=== PATIENT | male | born 1940 | race Caucasian/White ===

== ENCOUNTER 2021-03-28 01:36 | Inpatient (IN) | payer BC ==
[~2021-03-28] VITALS: Ht 180.3 cm; Wt 131.5 kg
[2021-03-28 01:44] VITALS: BP 147/80
[2021-03-28] MEDS ORDERED: ASA81BEC PO (02:28)
[2021-03-28] MEDS ORDERED: LIPITOR40 MG PO (02:28)
[2021-03-28] MEDS ORDERED: ALPRAZOLAM XR3 MG PO (02:30)
[2021-03-28] MEDS ORDERED: ALLOPURINOL 10100 M3 PO (02:30)
[2021-03-28] MEDS ORDERED: PLAVIX 75 MG TA75 MG PO (02:31)
[2021-03-28] MEDS ORDERED: VOLTAREN ARTHRI20 GM TOP (02:32)
[2021-03-28] MEDS ORDERED: FAMOTIDINE 20 M20 MG PO (02:33)
[2021-03-28] MEDS ORDERED: NEURONTIN 300M300 M2 PO (02:33)
[2021-03-28 02:34] LABS: ABSOLUTE BASOPHILS 0.1 thou/uL (0.0-0.2); ABSOLUTE EOSINOPHILS 0.1 thou/uL (0.0-0.7); ABSOLUTE MONOCYTES 1.4 thou/uL (0.0-1.2); ABSOLUTE NEUTROPHILS 6.4 thou/uL (1.6-8.1); BASOPHILS 0.7 %; EOSINOPHILS 1.1 %; HEMOGLOBIN 12.7 gm/dL (14.0-18.0); LYMPHOCYTES 20.6 %; MCH 31.4 pg (26.0-34.0); MCHC 33.6 g/dL (28.0-37.0); MCV 93.6 fL (80.0-100.0); MONOCYTES 13.6 %; MPV 8.1 fl. (7.2-11.1); NUCLEATED RBCS 0 /100WBC; PLATELET COUNT* 240 thou/uL (150-400); RBC 4.06 mil/uL (4.50-6.00); WBC 9.9 thou/uL (4.0-11.0)
[2021-03-28] MEDS ORDERED: LISINOPRIL20 MG PO (02:34)
[2021-03-28] MEDS ORDERED: TOPROL XL100 MG PO (02:34)
[2021-03-28] MEDS ORDERED: VICTOZA0.6 MG/0.1 SUBQ (02:35)
[2021-03-28] MEDS ORDERED: PROAIR HFA8.5 GM INH (02:35)
[2021-03-28] MEDS ORDERED: FLOMAX0.4 MG PO (02:36)
[2021-03-28 02:47] LABS: APTT 32.2 Seconds (25.0-31.3); CALCIUM 9.3 mg/dL (8.5-10.1); CREATININE 1.5 mg/dL (0.6-1.3); INR 1.1; POTASSIUM 3.8 mmol/L (3.5-5.1)
[2021-03-28 02:52] LABS: ALBUMIN 2.7 g/dL (3.4-5.0); TOTAL BILIRUBIN 1.1 mg/dL (<0.1-1.0); TOTAL PROTEIN 7.3 g/dL (6.4-8.2)
[2021-03-28 04:42] LABS: URINE BILIRUBIN NEGATIVE (Negative); URINE BLOOD NEGATIVE (Negative); URINE CLARITY CLEAR; URINE COLOR YELLOW; URINE GLUCOSE-RANDOM NEGATIVE (Negative); URINE KETONES NEGATIVE (Negative); URINE LEUKOCYTES-REFLEX 1+ (Negative); URINE NITRITE-REFLEX NEGATIVE (Negative); URINE PROTEIN NEGATIVE (Negative); URINE SPECIFIC GRAVITY 1.015 (1.005-1.030); URINE UROBILINOGEN 0.2 E.U./dl (0.2-1.0)
[2021-03-28 05:15] VITALS: BP 147/80
[2021-03-28 05:45] LABS: BACTERIA-REFLEX 1-9 Few /HPF (None Seen); CASTS None Seen /LPF (None Seen); CRYSTALS None Seen /LPF (None Seen); SQUAMOUS 0-3 Few /LPF (0-3); URINE RBC None Seen /HPF (0-2); URINE WBC-REFLEX 0-5 Rare /HPF (0-5)
[2021-03-28 08:00] VITALS: BP 123/67
--- NOTE | 2021-03-28 09:08 | EKG ---
[place] [address] ELECTROCARDIOGRAM REPORT Name: ABRAN KYLE Room: [address] ADM IN M.R.#: [id number] Admission: 03/28/21 Attend Phys: Ronny Patel, Discharge: Date of : 40 Date of Service: 03/28/21 0143 Report #: [id number] THIS REPORT FOR: //name// [facility] ED Test Date: 2021-03-28 Test Time: 01:43:08 Pat Name: ABRAN KYLE Department: Room: [facility] Gender: M V Belt Coverer: MAURA : 1940 Requested By: Niharika Staton Order Number: [id number] MD: Tarik Latham Measurements Intervals [place] Rate: 99 P: 119 WI: 135 QRS: -38 QRSD: 119 T: 124 QT: 374 QTc: 480 Interpretive Statements Sinus tachycardia Multiform ventricular premature complexes Nonspecific IVCD with LAD Inferior infarct, old Anterior infarct, old Lateral leads are also involved No previous ECG available for comparison Electronically Signed On 03-28-2021 9:08:44 CDT by Tarik Latham [email or web address] <ELECTRONICALLY SIGNED> By: Tarik Latham MD, FACC 03/28/21 0908 2 2 Tarik Latham MD, FACC /EPI
--- NOTE | 2021-03-28 16:05 | NUR ---
Case Management Assessment CM met with pt to complete assessment. Pt reported he lives with his and daughter and wants to return home upon discharge. Pt denied history of ADL support. Pt uses a wheelchair, walker, and cane to ambulate. Pt reported previously working with [facility] or [facility] and indicated he would like to resume services upon discharge. Pt denied history of SNF or rehab services. CM to continue to follow pt for discharge planning.
[2021-03-28 16:33] VITALS: BP 143/79
--- NOTE | 2021-03-28 18:42 | NUR ---
PT RESTING WITH SWOLLEN LEFT LEG UP ON A PILLOW ON HIS BED. PT VSS AFEBRILE. PT HAS ANTIBIOTICS SCHEDULED ALONG WITH SOME PAIN MEDICATIONS HELPING WITH HIS PAIN. WILL CONTINUE TO MONITOR PLAN OF CARE.
[2021-03-28 21:30] VITALS: BP 122/69
[2021-03-29 04:13] VITALS: BP 129/57
[2021-03-29 05:19] LABS: HEMATOCRIT 35.9 % (42.0-52.0); HEMOGLOBIN 11.8 gm/dL (14.0-18.0); MCH 30.6 pg (26.0-34.0); MCHC 32.9 g/dL (28.0-37.0); RBC 3.86 mil/uL (4.50-6.00); RDW-CV 15.5 % (10.5-14.5)
[2021-03-29 05:38] LABS: CALCIUM 9.4 mg/dL (8.5-10.1); CREATININE 1.3 mg/dL (0.6-1.3); POTASSIUM 3.9 mmol/L (3.5-5.1)
--- NOTE | 2021-03-29 06:14 | NUR ---
PT SLEPT ON AND OFF OVERNIGHT. LLE EDEMATOUS, RED AND WARM. PT ENCOURAGED TO KEEP LLE ELEVATED ON PILLOW. UP WITH ASSIST TO BSC AND USING URINAL OVERNIGHT TO VOID. UP WITH MAX ASSIST TO WHEELCHAIR AT PT INSISTANCE THIS MORNING. LAC SL, ABX GIVEN ORDERED. RECEIVED IV PAIN MEDICATION THIS MORNING. HS ACCUCHECK 127. ROOM AIR, WEARING HOME CPAP OVERNIGHT. CHAIR ALARM IN PLACE IN WHEELCHAIR, CALL LITE IN EASY REACH.
[2021-03-29 08:36] VITALS: BP 127/64
--- NOTE | 2021-03-29 10:07 | NUR ---
WOUND NURSE: PATIENT SEEN TO ADDRESS CELLULITIS IN LLE. PATIENT WITH 4+ PITTING EDEMA IN LLE, NO OPEN WOUND AT THIS TIME. PATIENT REPORTS HE NORMALLY WEARS COMPRESSION GARMENT, BUT HAS NOT BEEN ABLE TO APPLY AT HOME. PATIENT WITHOUT OPEN WOUNDS. SPOKE WITH DR GROSSMAN AND HE APPROVED USE OF TUBIGRIPS FOR EDEMA CONTROL AND FOLLOW UP OUTPATIENT WITH LYMPHEDEMA THERAPIST HERE AT [facility]. PATIENT WAS PROVIDED WITH INSTRUCTION AND STATES HE UNDERSTANDS. ALSO SPOKE WITH OUTPATIENT THERAPIES [employer] AND THEY WILL CALL THE PATIENT WHEN THE THERAPIST IS AVAILABLE.
[2021-03-29 14:00] VITALS: BP 128/68
[2021-03-29 15:53] VITALS: BP 113/53
--- NOTE | 2021-03-29 16:09 | NUR ---
Case Management Followup Consultation with providers indicated pt is not yet medically clear to discharge. services through [facility] arranged for pt. Outpatient appointment arranged for pt at lymphedema clinic. CM to continue to follow pt for discharge planning services.
[2021-03-29 21:30] VITALS: BP 103/70
--- NOTE | 2021-03-30 05:34 | NUR ---
PATIENT HAS SLEPT OFF AND ON DURING THE NIGHT. VSS ON RA. PATIENT CONFUSED AT TIMES AND FORGETFUL. MEDICATIONS GIVEN ORDERED AND CHARTED. PATIENT USING URINAL DURING THE NIGHT WITH HELP OF NURSE. LEFT AC-SL. IV ABT GIVEN WITHOUT ANY ADVERSE SIDE EFFECTS NOTED. FALL PRECAUTIONS IN PLACE AND HOURLY ROUNDS MADE. WILL CONTINUE WITH PLAN OF CARE AND NURSING TO MONITOR.
[2021-03-30 08:00] VITALS: BP 149/91
[2021-03-30] MEDS ORDERED: CLINDAMYCIN HC300 MG PO (10:46)
--- NOTE | 2021-03-30 12:43 | NUR ---
WOUND NURSE: CONT LYMPHEDEMA IN LLE DESPITE USE OF TUBIGRIPS. ORDER FOR LYMPHEDEMA THERAPIST POST DISCHARGE SENT TO OUTPATIENT THERPIES BY [employer] SPECIALIST.
[2021-03-30 13:10] VITALS: BP 149/91
[2021-03-30 13:11] VITALS: BP 149/91
[2021-03-30] MEDS ORDERED: B COMPLEX1 EACH PO (14:27)
[2021-03-30] MEDS ORDERED: VITAMIN C250 MG PO (14:28)
[2021-03-30] MEDS ORDERED: VITAMIN D325 MC5 PO (14:28)
[2021-03-30] MEDS ORDERED: ZINC30 M1 PO (14:28)
[2021-03-30 15:09] VITALS: BP 130/65
--- NOTE | 2021-03-30 16:26 | NUR ---
Case Management Followup CM and providers met to discuss length of stay and discharge. Providers indicated pt not yet medically clear for discharge. Pt not able to resume services with [facility] and was referred to [facility]. [facility] not able to service pt due to pt's outpatient lymphedema clinic appointment. CM to [facility]ai to link pt to HH with OT services.
--- NOTE | 2021-03-30 19:51 | NUR ---
PATIENT RESTING IN BED. PATIENT DENIES ANY PAIN. PATIENT IS UP MAX ASSIST WITH GAIT BELT AND WALKER FOR TRANSFER. PATIENT WANTED TO GO HOME THIS AM BUT DECIDED IT WAS BEST TO STAY AFTER HE REALIZED HOW WEAK HE WAS. PT/OT ORDERED BUT NOT SEEN TODAY. PATIENT DENIES ANY NEEDS AT THIS TIME. CALL LIGHT WITHIN REACH.
[2021-03-30 22:00] VITALS: BP 130/78
[2021-03-31 08:00] VITALS: BP 146/69
--- NOTE | 2021-03-31 08:40 | NUR ---
PATIENT HAS SLEPT WELL THROUGHOUT MOST OF THE NIGHT. VSS ON RA, ALTHOUGH SLIGHT ELEVATED TEMP OF 99.8. PATIENT IS ALERT AND ORIENTED TO SELF AND PLACE BUT CONFUSED AND FORGETFUL AT TIMES. MEDICATIONS GIVEN ORDERED AND CHARTED. NEW IV INSERTED IN RIGHT HAND-SL. IV ABT GIVEN WITHOUT ANY ADVERSE SIDE EFFECTS NOTED. TUBIGRIP TO LEFT LEG. FALL PRECAUTIONS IN PLACE AND HOURLY ROUNDS MADE. WILL CONTINUE WITH PLAN OF CARE AND NURSING TO MONITOR.
[2021-03-31 15:54] VITALS: BP 132/71
--- NOTE | 2021-03-31 17:58 | NUR ---
Case Management Followup CM and providers met to discuss length of stay and discharge. Providers indicated pt may be discharged tomorrow, pending results from positive culture. Pt linked to [facility] ([phone]). [facility] to also provide OT lymphedema wraps. Pt's first session with [facility] scheduled for 04/04/21.
[2021-03-31 18:08] VITALS: BP 149/91
--- NOTE | 2021-03-31 19:19 | NUR ---
ASSUMED CARE OF PT. AROUND 0930 FROM JAM NEELY, VSS, AOX2-3, CALL LIGHT AND PERSONAL BELONGINGS PLACED WITHIN REACH. PT. IN BED, DENIES PAIN, IN STABLE CONDITION, AT SHIFT CHANGE.
[2021-04-01 05:05] LABS: ABSOLUTE BASOPHILS 0.1 thou/uL (0.0-0.2); ABSOLUTE EOSINOPHILS 0.3 thou/uL (0.0-0.7); ABSOLUTE LYMPHOCYTES 2.2 thou/uL (0.8-5.3); ABSOLUTE MONOCYTES 1.4 thou/uL (0.0-1.2); BASOPHILS 0.7 %; HEMATOCRIT 36.1 % (42.0-52.0); HEMOGLOBIN 11.9 gm/dL (14.0-18.0); LYMPHOCYTES 20.3 %; MCH 30.8 pg (26.0-34.0); MCV 93.3 fL (80.0-100.0); MONOCYTES 12.8 %; MPV 7.9 fl. (7.2-11.1); NUCLEATED RBCS 0 /100WBC; POLYS 63.2 %; RBC 3.86 mil/uL (4.50-6.00); RDW-CV 15.5 % (10.5-14.5)
[2021-04-01 05:21] LABS: PLATELET COUNT* 332 thou/uL (150-400)
[2021-04-01 05:27] LABS: ALBUMIN 2.1 g/dL (3.4-5.0); CREATININE 1.2 mg/dL (0.6-1.3); POTASSIUM 4.3 mmol/L (3.5-5.1); TOTAL PROTEIN 6.6 g/dL (6.4-8.2)
[2021-04-01 08:00] VITALS: BP 146/74
[2021-04-01 16:42] VITALS: BP 147/83
--- NOTE | 2021-04-01 18:13 | NUR ---
PATIENT RESTING IN BED. BLOOD SUGARS MONITORED. EDEMA AND CELLULITIS TO LOWER LEGS, LEFT LEG WITH HIGHER EDEMA/CELLULITIS. TUBI AIRWAYS CONTROL SPECIALIST TO LEFT LOWER LEG. ALERT AND ORIENTED X4. IV TO RIGHT FOREARM, SALINE LOCKED. MORPHINE X2 GIVEN FOR PAIN. BED IN LOW/LOCKED POSITION. CALL LIGHT WITHIN REACH. ALL QUESIONS AND CONCERNS ADDRESSED.
[2021-04-01 20:30] VITALS: BP 131/64
--- NOTE | 2021-04-02 05:40 | NUR ---
ASSUMED CARE AT 1930. PATIENT RESTED IN BED ALL SHIFT. UP WITH MAX ASSIST OF 2 FOR BM PER BSC. DID NOT HAVE BM, AND VOIDED ON THE FLOOR MISSING THE URINAL HE HAD IN PLACE. SKIN CARE DONE. NO FURTHER C/O NEED FOR BM. VOIDED PER URINAL REST OF THE SHIFT. SALINE LOCK TO RT FOREARM INTACT. IV ABX CONTINUE. NO C/O PAIN. BLE EDEMA, L WORSE THAN RIGHT. TUBIGRIPS TO LLE. TURNS SELF. HOURLY ROUNDS CONTINUE. BED ALARM ON. CALL LITE IN REACH.
[2021-04-02 08:00] VITALS: BP 147/83
[2021-04-02 11:10] VITALS: BP 149/91
[2021-04-02] MEDS ORDERED: MINOCYCLINE HC100 M2 PO (11:58)
[2021-04-02 14:12] VITALS: BP 149/91
--- NOTE | 2021-04-02 14:23 | NUR ---
PATIENT DISCHARGED AT THIS TIME VIA WHEELCHAIR ACCOMPANIED BY SON TO PRIVATE VEHICLE. IV DC'D, COTTON BALL AND BANDAID PLACED TO SITE. PERSONAL BELONGINGS GATHERED AND SENT HOME WITH PATIENT. DISCHARGE INSTRUCTIONS REVIEWED, PATIENT ACKNOWLEDGED UNDERSTANDING. ALL QUESTIONS AND CONCERNS ADDRESSED.
== END 2021-04-02 13:40 | disposition home health service (06) | DRG 602 ==
LOC: M.ERS 01:36 → M.3W 04:44 → M.TBA-ER 04:44 → M.3W 05:41
PROVIDERS: Internal Medicine; Personal Emergency Response Attendant; ADMIT Internal Medicine; ATTEND Internal Medicine
DX: L03.116 Cellulitis of left lower limb (principal); R65.11 Systemic inflammatory response syndrome (SIRS) of non-infectious origin with acute organ dysfunction; N17.9 Acute kidney failure, unspecified; Z68.41 Body mass index [BMI] 40.0-44.9, adult; Z20.822 Contact with and (suspected) exposure to COVID-19; E11.40 Type 2 diabetes mellitus with diabetic neuropathy, unspecified; F41.9 Anxiety disorder, unspecified; K21.9 Gastro-esophageal reflux disease without esophagitis; E11.22 Type 2 diabetes mellitus with diabetic chronic kidney disease; G47.33 Obstructive sleep apnea (adult) (pediatric); N18.30 Chronic kidney disease, stage 3 unspecified; E66.01 Morbid (severe) obesity due to excess calories; I89.0 Lymphedema, not elsewhere classified; E86.0 Dehydration; R53.81 Other malaise; B99.8 Other infectious disease; I25.2 Old myocardial infarction; Z85.46 Personal history of malignant neoplasm of prostate; Z88.0 Allergy status to penicillin; Z95.1 Presence of aortocoronary bypass graft; Z79.82 Long term (current) use of aspirin; Z79.899 Other long term (current) drug therapy

== ENCOUNTER 2021-05-21 10:46 | Inpatient (IN) | payer BC ==
[~2021-05-21] VITALS: Ht 180.3 cm; Wt 127.0 kg
[~2021-05-21 10:46] MED LIST: ALLOPURINOL 10100 M3 PO; ALPRAZOLAM XR3 MG PO; ASA81BEC PO; B COMPLEX1 EACH PO; CLINDAMYCIN HC300 MG PO; FAMOTIDINE 20 M20 MG PO; FLOMAX0.4 MG PO; LIPITOR40 MG PO; LISINOPRIL20 MG PO; MINOCYCLINE HC100 M2 PO; NEURONTIN 400400 M1 PO; PLAVIX 75 MG TA75 MG PO; PROAIR HFA8.5 GM INH; TOPROL XL100 MG PO; VICTOZA0.6 MG/0.1 SUBQ; VITAMIN C250 MG PO; VITAMIN D325 MC5 PO; VOLTAREN ARTHRI20 GM TOP; ZINC30 M1 PO
[2021-05-21 10:56] VITALS: BP 119/68
[2021-05-21] MEDS ORDERED: TORSEMIDE20 MG PO (11:00)
[2021-05-21 11:45] LABS: ABSOLUTE EOSINOPHILS 0.4 thou/uL (0.0-0.7); ABSOLUTE LYMPHOCYTES 1.9 thou/uL (0.8-5.3); ABSOLUTE NEUTROPHILS 4.9 thou/uL (1.6-8.1); BASOPHILS 0.6 %; EOSINOPHILS 4.5 %; HEMATOCRIT 35.5 % (42.0-52.0); HEMOGLOBIN 11.9 gm/dL (14.0-18.0); LYMPHOCYTES 22.5 %; MCH 30.1 pg (26.0-34.0); MCHC 33.5 g/dL (28.0-37.0); MCV 89.9 fL (80.0-100.0); MONOCYTES 12.5 %; MPV 7.4 fl. (7.2-11.1); NUCLEATED RBCS 0 /100WBC; PLATELET COUNT* 332 thou/uL (150-400); POLYS 59.9 %; RBC 3.95 mil/uL (4.50-6.00); RDW-CV 15.9 % (10.5-14.5); WBC 8.2 thou/uL (4.0-11.0)
[2021-05-21 12:00] LABS: CALCIUM 8.7 mg/dL (8.5-10.1); CREATININE 1.4 mg/dL (0.6-1.3); POTASSIUM 4.3 mmol/L (3.5-5.1)
[2021-05-21 15:45] VITALS: BP 117/60
[2021-05-21 21:25] VITALS: BP 111/66
[2021-05-21] MEDS ORDERED: VICTOZA0.6 MG/0.1 SUBQ (22:45)
[2021-05-22] VITALS (7 sets, daily range): BP systolic 104–136; BP diastolic 51–73
[2021-05-22 05:40] LABS: HEMATOCRIT 34.5 % (42.0-52.0); HEMOGLOBIN 11.6 gm/dL (14.0-18.0); MCH 29.9 pg (26.0-34.0); MCHC 33.5 g/dL (28.0-37.0); MCV 89.3 fL (80.0-100.0); MPV 7.5 fl. (7.2-11.1); RBC 3.86 mil/uL (4.50-6.00); RDW-CV 15.8 % (10.5-14.5); WBC 7.9 thou/uL (4.0-11.0)
[2021-05-22 05:57] LABS: ALBUMIN 2.1 g/dL (3.4-5.0); CALCIUM 8.6 mg/dL (8.5-10.1); CREATININE 1.2 mg/dL (0.6-1.3); MAGNESIUM 1.7 mg/dL (1.8-2.4); POTASSIUM 4.1 mmol/L (3.5-5.1); TOTAL BILIRUBIN 0.8 mg/dL (<0.1-1.0); TOTAL PROTEIN 6.3 g/dL (6.4-8.2)
[2021-05-22] MEDS ORDERED: ASA81BEC PO (22:55)
[2021-05-22] MEDS ORDERED: VITAMIN B-121000 MC2 PO (23:20)
[2021-05-22] MEDS ORDERED: VITAMIN D3250 MC1 PO (23:22)
[2021-05-22] MEDS ORDERED: VITAMIN C500 M1 PO (23:23)
[2021-05-23] VITALS: BP 131/53
[2021-05-23 05:00] VITALS: BP 118/52
[2021-05-23 08:49] VITALS: BP 113/54
[2021-05-23 12:00] VITALS: BP 127/66
[2021-05-23 13:43] LABS: ABSOLUTE BASOPHILS 0.1 thou/uL (0.0-0.2); ABSOLUTE EOSINOPHILS 0.3 thou/uL (0.0-0.7); ABSOLUTE LYMPHOCYTES 1.9 thou/uL (0.8-5.3); ABSOLUTE MONOCYTES 0.9 thou/uL (0.0-1.2); ABSOLUTE NEUTROPHILS 4.4 thou/uL (1.6-8.1); BASOPHILS 0.9 %; EOSINOPHILS 4.2 %; HEMATOCRIT 35.1 % (42.0-52.0); HEMOGLOBIN 11.7 gm/dL (14.0-18.0); LYMPHOCYTES 25.1 %; MCH 29.8 pg (26.0-34.0); MCHC 33.4 g/dL (28.0-37.0); MCV 89.3 fL (80.0-100.0); MONOCYTES 11.7 %; MPV 7.3 fl. (7.2-11.1); NUCLEATED RBCS 0 /100WBC; PLATELET COUNT* 322 thou/uL (150-400); POLYS 58.1 %; RBC 3.93 mil/uL (4.50-6.00); RDW-CV 15.4 % (10.5-14.5); WBC 7.5 thou/uL (4.0-11.0)
[2021-05-23 13:57] LABS: ALBUMIN 2.2 g/dL (3.4-5.0); CALCIUM 9.1 mg/dL (8.5-10.1); CREATININE 1.2 mg/dL (0.6-1.3); POTASSIUM 4.2 mmol/L (3.5-5.1); TOTAL BILIRUBIN 0.7 mg/dL (<0.1-1.0); TOTAL PROTEIN 6.7 g/dL (6.4-8.2)
--- NOTE | 2021-05-23 15:54 | NUR ---
CM ASSESSMENT: PT A&O, AND INDEPENDENT WITH ADL'S PRIOR TO ADMIT. PT RESIDES AT HOME WITH SPOUSE. PT USES POWER WHEELSHAIR FOR MOBILITY, AND CPAP. PT ALSO OWNS A WALKER AND CANE, BUT DOES NOT USUALLY USE THEM. PT HAS 0 HX OF SNF. PT INFORMS THAT HE IS CURRENTLY ON-SERVICE WITH [facility] AND PLANS TO RESUME HH WITH [facility] AT D/C. CM WILL REMAIN AVAILABLE TO ASSIST FOLLOW NEEDED.
[2021-05-23 16:00] VITALS: BP 134/75
--- NOTE | 2021-05-23 19:05 | NUR ---
ASSUMED PT CARE AT 0730. PT IS A&O X4 PLEASANT AND CONVERSATIONAL. ASSESSMENT COMPLETED. MEDICATIONS ADMINISTERED ORDERED. PT DENIES ANY CONCERNS. SAFETY MEASURES IN PLACE. PT IS ON BEDREST. ENCOURAGED PT TO REPOSITION TO PROMOTE COMFORT.
[2021-05-23 20:10] VITALS: BP 134/68
[2021-05-24] VITALS: BP 141/70
[2021-05-24 04:00] VITALS: BP 140/68
--- NOTE | 2021-05-24 05:25 | NUR ---
PATIENT HAS REMAINED ALERT AND ORIENTED X 4 THROUGHOUT THE SHIFT AND RESTING QUIETLY ON HOURLY ROUNDS. HOME CPAP ON AT HS. MEDS/ANTIBIOTICS PER ORDER. ENCOURAGED Q2H TURNS. FALL PRECAUTIONS IN PLACE. HAS DENIED NEED FOR PAIN MEDICATION. LARGE BANDAID DRY/INTACT TO LEFT KNEE. CONTINUE TO MONITOR.
[2021-05-24 06:01] LABS: PREALBUMIN 12.8 mg/dL (18.0-35.7)
[2021-05-24 07:45] VITALS: BP 113/80
[2021-05-24 09:08] LABS: HEPATITIS B SURFACE AG Negative (Negative)
[2021-05-24 11:22] VITALS: BP 122/66
[2021-05-24 14:01] LABS: URINE BILIRUBIN NEGATIVE (Negative); URINE BLOOD NEGATIVE (Negative); URINE CLARITY CLEAR; URINE COLOR YELLOW; URINE GLUCOSE-RANDOM NEGATIVE (Negative); URINE KETONES NEGATIVE (Negative); URINE LEUKOCYTES-REFLEX NEGATIVE (Negative); URINE NITRITE-REFLEX NEGATIVE (Negative); URINE PROTEIN NEGATIVE (Negative); URINE UROBILINOGEN 0.2 E.U./dl (0.2-1.0)
--- NOTE | 2021-05-24 14:22 | NUR ---
PLAN OF CARE: INITIAL PLAN FOR THE PT TO D/C HOME TODAY. HOWEVER PT'S D/C NOW ON HOLD, AND PHYSICIAN INFORMS THAT THE PT MAY NEED IV ABT'S AT D/C. I.D. CONSULTED. CM TO DISCUSS THIS WITH THE PT, WELL HOME WITH IV ABT'S VS SNF IF NEEDED AT D/C . CM WILL REMAIN AVAILABLE TO ASSIST AND FOLLOW NEEDED.
--- NOTE | 2021-05-24 17:15 | CON ---
[address] [address] CONSULTATION Name: ABRAN KYLE Migue Room: [address] IN .R.#: [id number] Admission: 05/21/21 Attend Phys: Araceli Francois MD Discharge: Date of : 40 Report #: [id number] THIS REPORT FOR: cc: Denis Padilla MD,Andrew Bravo MD, DO ~ cc: Denis Padilla MD DATE OF CONSULTATION: 05/24/2021 Please note at the time of this dictation, the patient was seen and physically examined by myself. REASON FOR CONSULTATION: Elevated LFTs. HISTORY OF PRESENT ILLNESS: This is a pleasant 81-year-old male who presented to the Emergency Room having left knee that had pain and redness and swelling for the last 2 days. He denies any trauma or injury to this. He has had generalized malaise and some nausea and increased fatigue with all of this. The patient states he has never had an EGD, but had a colonoscopy done greater than 5 years ago, he thinks at [facility], there it was told that he had polyps, but he has not had one since. He has had some issues with constipation in the past, but he takes a probiotic on a regular basis, which works well for him and he goes about 4 times a week, soft, formed stool with no evidence of any bright red blood or melanotic stool. The patient states he has never been told that his LFTs have been elevated. ALLERGIES: PENICILLIN, MORPHINE. MEDICATIONS FROM HOME: Include torsemide, Neurontin, lisinopril, atorvastatin, allopurinol, alprazolam, Plavix, Toprol, Flomax and Victoza. PAST MEDICAL HISTORY: He has had an DE, type 2 diabetes, neuropathy, prostate cancer, anxiety, GERD, arthritis and stage 3 kidney disease. PAST SURGICAL HISTORY: He has had bypass surgery. FAMILY HISTORY: Negative for any GI or female cancers. SOCIAL HISTORY: He lives with his . Denies any tobacco or illegal drug use and alcohol socially. REVIEW OF SYSTEMS: A 12-point review of systems is essentially negative except what [place] [address] CONSULTATION Name: ABRAN KYLE Room: [address]#: [id number] Admission: 05/21/21 Attend Phys: Araceli Francois MD Discharge: Date of : 40 Report #: [id number] PHYSICAL EXAMINATION: VITAL SIGNS: Temperature 36.1, pulse 69, respirations 18, blood pressure 122/66. HEART: Regular rate and rhythm. LUNGS: Clear. ABDOMEN: Soft, positive bowel sounds in all 4 quadrants with no masses or tenderness noted. LABORATORY DATA: Hemoglobin is 11.7, white count is 7.5, platelets are 322. GFR is 58. ESR is 125. CRP is 111.1, total bili 0.7, alk phos 84, ALT 214, AST 112. Acute hepatitis panel is negative. IMPRESSION: 1. Elevated liver function tests. 2. Mild anemia. 3. Obesity, 279 pounds. 4. History of colon polyps. 5. Anticoagulant therapy. Plavix due to stents and transient ischemic attacks. PLAN: 1. Labs: Ferritin, iron studies, B12, AFP, alpha-fetoprotein, alpha-1 antitrypsin, serum plasma, mitochondrial antibody, antismooth muscle antibody. 2. Ultrasound of the abdomen to evaluate the liver. 3. Further workup can be done as an outpatient with followup regarding his labs and ultrasound if needed. Thank you for allowing us to participate in this patient's care. Please do not hesitate to call with any questions regarding this consult. <ELECTRONICALLY SIGNED> By: Andrew Dugan DO 05/24/21 1715 [id number] Dugan DO /nt
[2021-05-24 17:19] LABS: % SATURATION 16 % (20-39); IRON 25 ug/dL (50-175)
[2021-05-24 17:24] VITALS: BP 131/75
--- NOTE | 2021-05-24 19:21 | NUR ---
PT PROGRESSING TOWARDS DC GOALS. PT STOOD UP AND WALKED WITH THE USE OF THE WALKER. PT WAS ANXIOUS TO GO HOME. LABORER/KEY MAN HERE AND ORDERED A BUNCH OF TEST SO HE WILL HAVE THESE DONE TOMORROW, MOST OF THE LABS AND UA DONE TODAY . PT CONTINUES TO GET IV ANTIBIOTICS AT SCHEDULED TIMES. PT DENIES PAIN . WILL CONTINUE TO MONITOR PLAN OF CARE.
[2021-05-24 19:30] VITALS: BP 123/70
[2021-05-25] VITALS: BP 130/71
[2021-05-25 04:00] VITALS: BP 124/68
--- NOTE | 2021-05-25 04:23 | NUR ---
PATIENT HAS REMAINED ALERT AND ORIENTED X 4 THROUGHOUT THE SHIFT AND RESTING QUIETLY AT HOURLY ROUNDS. TURNS SELF WITH ENCOURAGEMENT. DENIES PAIN. ANTIBIOTCS PER ORDER. VITAL SIGNS STABLE WITH SR ON TELE MONITOR. AFEBRILE. AWAITING US OF ABDOMEN THIS AM. HOPES TO GO HOME LATER TODAY. FALL PRECAUTIONS IN PLACE. CONTINUE TO MONITOR.
--- NOTE | 2021-05-25 07:15 | NUR ---
CHANGE OF SHIFT REPORT GIVEN PATIENT SEEN AT BEDSIDE, IN BED WATCHING TV ASSUMED PATIENT CARE
[2021-05-25 08:00] VITALS: BP 120/60
[2021-05-25 09:07] LABS: CERULOPLASMIN 30.5 mg/dL (16.0-31.0)
[2021-05-25 12:08] VITALS: BP 133/69
--- NOTE | 2021-05-25 13:28 | NUR ---
PLAN OF CARE: PHYSICIAN INFORMS OF PLAN TO POSSIBLY D/C THE PT HOME TODAY AND RESUME HH WITH [facility]. D/C ORDERS PENDING. CM WILL REMAIN AVAILABLE TO ASSIST AND FOLLOW NEEDED. [facility] PHONE: [phone] FAX: [phone]
[2021-05-25 13:30] VITALS: BP 133/69
[2021-05-25 16:33] VITALS: BP 133/69
--- NOTE | 2021-05-25 17:15 | NUR ---
patient discharged to home iv and heart monitor removed personal belongings returned patient given discharge instructions and paperwork signed assisted out via wc to waiting car with
[2021-05-25 19:07] LABS: ANA INTERPRETATION Negative (())
== END 2021-05-25 17:15 | disposition home or self-care (01) | DRG 603 ==
LOC: M.ERS 10:46 → M.TBA-ER 12:27 → M.2W 12:27 → M.TBA-ER 23:07 → M.2W 05-22 22:05
PROVIDERS: Emergency Medicine Emergency Medical Services; Internal Medicine; Nurse Practitioner Adult Health; ADMIT Internal Medicine; ATTEND Internal Medicine
PROC: 0S9D3ZZ Drainage of Left Knee Joint, Percutaneous Approach (ICD-10-PCS; principal; 2021-05-21)
DX: L03.116 Cellulitis of left lower limb (principal); B17.9 Acute viral hepatitis, unspecified; E87.1 Hypo-osmolality and hyponatremia; E44.0 Moderate protein-calorie malnutrition; I12.9 Hypertensive chronic kidney disease with stage 1 through stage 4 chronic kidney disease, or unspecified chronic kidney disease; I25.10 Atherosclerotic heart disease of native coronary artery without angina pectoris; E11.22 Type 2 diabetes mellitus with diabetic chronic kidney disease; Z79.4 Long term (current) use of insulin; E11.21 Type 2 diabetes mellitus with diabetic nephropathy; F41.9 Anxiety disorder, unspecified; K21.9 Gastro-esophageal reflux disease without esophagitis; Z20.822 Contact with and (suspected) exposure to COVID-19; E66.9 Obesity, unspecified; Z68.39 Body mass index [BMI] 39.0-39.9, adult; Z88.0 Allergy status to penicillin; Z88.8 Allergy status to other drugs, medicaments and biological substances; Z85.46 Personal history of malignant neoplasm of prostate; D64.9 Anemia, unspecified; I25.2 Old myocardial infarction; N18.30 Chronic kidney disease, stage 3 unspecified; Z95.1 Presence of aortocoronary bypass graft